=== PATIENT | male | born 1950 | race Hispanic/Latino ===

== ENCOUNTER 2022-08-15 17:47 | Observation (INO) | payer MEDICARE, OTHER, SELFPAY ==
[2022-08-15 18:33] LABS: Hemoglobin 10.6 g/dL (13.5-17.5); Mean Corpuscular HGB CONC 35.3 g/dL (32.0-36.0); Mean Corpuscular Hemoglobin 31.5 pg (27.0-33.0); Mean Platelet Volume 10.5 fl (7.4-10.4); Platelet Count 210 10x3/uL (150-450); RBC Distribution Width 12.2 % (11.5-14.5); Red Blood Cell (RBC) Count 3.37 10x6/uL (4.32-5.72); White Blood Cell (WBC) Count 7.3 10x3/uL (3.5-10.5)
[2022-08-15] MEDS ORDERED: Ondansetron PF 4 MG/2 ML Vial ONE (18:46)
[2022-08-15 19:18] LABS: Lymphocytes 8 % (21-51); Monocytes 3 % (0-10); Neutrophil 89 % (42-75)
[2022-08-15 19:20] LABS: MDiff Complete? YES; Platelet Morphology Comment Appears Adequate; RBC Morphology Normal
[2022-08-15] MEDS ORDERED: Calcium Carbonate 500 MG ChewTAB PO PRN (21:22)
[2022-08-15] MEDS ORDERED: Senokot S 8.6-50 MG TAB PO PRN (21:22)
[2022-08-15] MEDS ORDERED: Acetaminophen 325 MG TAB PO PRN (21:22)
[2022-08-15] MEDS ORDERED: Ondansetron PF 4 MG/2 ML Vial IVP PRN (21:22)
[2022-08-15] MEDS ORDERED: Guaifenesin DM 100-10/5 ML UDCUP PO PRN (21:22)
[2022-08-15] MEDS ORDERED: Melatonin 3 MG TAB PO PRN (21:25)
[2022-08-15] MEDS ORDERED: Lactated Ringer's 500 ML IV SCH (22:00)
[2022-08-15 22:16] VITALS: BMI 28.1
[2022-08-15] MEDS ORDERED: Oxymetazoline HCl 0.05% ( 15 ML ) ONE (22:36)
[2022-08-15] MEDS: Sodium Chloride 0.65% Nasal 44 ML BOT EA NARE SCH (22:40)
[2022-08-15] MEDS: Oxymetazoline HCl 0.05% ( 15 ML ) NASAL SCH (22:40)
[2022-08-15 23:05] VITALS: TEMP 98.4
[2022-08-15 23:18] LABS: SARS-CoV-2 NAA Rapid Test Not Detected (NotDetected)
[2022-08-16 01:06] VITALS: BP 121/75
[2022-08-16 03:48] LABS: #Monocytes 0.6 10x3/uL (0.0-1.1); #Neutrophils 2.8 10x3/uL (1.5-8.4); %Basophils 0.7 % (0.0-2.0); %Eosinophils 0.9 % (0.0-6.0); %Lymphocytes 23.9 % (18.0-47.0); %Monocytes 12.3 % (0.0-10.0); Hemoglobin 9.8 g/dL (13.5-17.5); Mean Corpuscular HGB CONC 35.9 g/dL (32.0-36.0); Mean Corpuscular Volume 89.2 fl (81.2-95.1); Mean Platelet Volume 10.8 fl (7.4-10.4); Platelet Count 190 10x3/uL (150-450); RBC Distribution Width 12.4 % (11.5-14.5); Red Blood Cell (RBC) Count 3.06 10x6/uL (4.32-5.72); White Blood Cell (WBC) Count 4.6 10x3/uL (3.5-10.5)
[2022-08-16 04:01] LABS: Anion Gap 13 mmol/L (10-20); BUN (Urea Nitrogen) 44 mg/dL (8.4-25.7); Calc. Creatinine Clearance 109 mL/min (70-130); Calcium 8.4 mg/dL (7.8-10.44); Carbon Dioxide 21 mmol/L (23-31); Chloride 112 mmol/L (98-107); Estimated GFR 98; Glucose 86 mg/dL (80-115); Potassium 3.7 mmol/L (3.5-5.1); Sodium 142 mmol/L (136-145)
[2022-08-16] MEDS: Sodium Chloride 0.65% Nasal 44 ML BOT EA NARE SCH (06:12)
[2022-08-16] MEDS: Oxymetazoline HCl 0.05% ( 15 ML ) NASAL SCH (10:00)
== END 2022-08-16 15:00 | disposition home or self-care (01) ==
LOC: CSHERS 17:47 → INTOOBSV 21:01 → CSHERHOLD 21:01
PROVIDERS: ADMIT Student in an Organized Health Care Education/Training Program; ATTEND Family Medicine
DX: R55 Syncope and collapse (principal); R04.0 Epistaxis; R42 Dizziness and giddiness; I12.9 Hypertensive chronic kidney disease with stage 1 through stage 4 chronic kidney disease, or unspecified chronic kidney disease; N18.30 Chronic kidney disease, stage 3 unspecified; R79.89 Other specified abnormal findings of blood chemistry; I48.0 Paroxysmal atrial fibrillation; D62 Acute posthemorrhagic anemia; C61 Malignant neoplasm of prostate; I95.9 Hypotension, unspecified; R65.10 Systemic inflammatory response syndrome (SIRS) of non-infectious origin without acute organ dysfunction; N17.9 Acute kidney failure, unspecified; E78.5 Hyperlipidemia, unspecified; I44.7 Left bundle-branch block, unspecified; M10.9 Gout, unspecified; M19.90 Unspecified osteoarthritis, unspecified site; Z20.822 Contact with and (suspected) exposure to COVID-19; Z79.899 Other long term (current) drug therapy
CPT/HCPCS: 80048; 82533; 82962; 84484; 85025 ×2; 93005; 99285; G0378; U0002; 36415; 36416; J2405; J7120

== ENCOUNTER 2022-08-25 13:45 | Inpatient (IN) | payer OTHER ==
[2022-08-25] MEDS ORDERED: EPINEPHrine 1 MG/ML AMP ONE (14:22)
[2022-08-25] MEDS ORDERED: PROPOFOL 20 ML ONE (14:27)
[2022-08-25] MEDS ORDERED: Fentanyl 100 MCG/2 ML VIAL ONE ×2 (14:27→15:33)
[2022-08-25 14:33] LABS: Hemoglobin 7.1 g/dL (13.5-17.5)
[2022-08-25 14:42] LABS: Anion Gap 14 mmol/L (10-20); BUN (Urea Nitrogen) 24 mg/dL (8.4-25.7); Calc. Creatinine Clearance 0 mL/min (70-130); Calcium 8.6 mg/dL (7.8-10.44); Carbon Dioxide 23 mmol/L (23-31); Chloride 106 mmol/L (98-107); Estimated GFR 95; Glucose 106 mg/dL (80-115); Potassium 3.8 mmol/L (3.5-5.1); Sodium 139 mmol/L (136-145)
[2022-08-25] MEDS ORDERED: PHENYLEPHRINE-NS 100 MCG/ML 10 ML SYRINGE ONE (15:08)
[2022-08-25] MEDS ORDERED: ePHEDrine Sulfate 50 MG/10 ML VIAL ONE (15:09)
[2022-08-25] MEDS ORDERED: Oxymetazoline HCl 0.05% ( 15 ML ) ONE (15:33)
[2022-08-25] MEDS ORDERED: HYDROcodone/Acetaminophen 5/325 mg Tablet ONE (16:59)
[2022-08-25] MEDS ORDERED: Ondansetron PF 4 MG/2 ML Vial IVP PRN (17:47)
[2022-08-25] MEDS ORDERED: Acetaminophen 325 MG TAB PO PRN (17:47)
[2022-08-25] MEDS ORDERED: Ondansetron ODT 4 MG TAB PO PRN (17:47)
[2022-08-25] MEDS ORDERED: Oxymetazoline HCl 0.05% ( 15 ML ) NASAL PRN (17:57)
[2022-08-25] MEDS ORDERED: Furosemide 20 MG/2 ML VIAL SLOW IVP SCH ×2 (18:30→21:00)
[2022-08-25] MEDS ORDERED: AMOXicillin 500 MG CAP PO SCH (21:00)
[2022-08-25] MEDS: AMOXicillin 250 MG CAP PO SCH (22:08)
[2022-08-25] MEDS: Sodium Chloride 0.65% Nasal 44 ML BOT EA NARE SCH (22:08)
[2022-08-25] MEDS: Acetaminophen/Codeine 30-300mg Tablet PO PRN (22:38)
[2022-08-26] MEDS: Ibuprofen 400 MG TAB PO PRN ×3 (00:35→15:21)
[2022-08-26 04:30] LABS: Anion Gap 14 mmol/L (10-20); BUN (Urea Nitrogen) 20 mg/dL (8.4-25.7); Calc. Creatinine Clearance 0 mL/min (70-130); Calcium 8.7 mg/dL (7.8-10.44); Carbon Dioxide 24 mmol/L (23-31); Chloride 106 mmol/L (98-107); Estimated GFR 93; Glucose 125 mg/dL (80-115); Sodium 140 mmol/L (136-145)
[2022-08-26 04:38] LABS: #Monocytes 0.4 10x3/uL (0.0-1.1); #Neutrophils 3.7 10x3/uL (1.5-8.4); %Lymphocytes 13.9 % (18.0-47.0); %Monocytes 7.6 % (0.0-10.0); %Neutrophils 77.9 % (40.0-75.0); Hemoglobin 6.5 g/dL (13.5-17.5); Mean Corpuscular HGB CONC 33.9 g/dL (32.0-36.0); Mean Corpuscular Hemoglobin 31.4 pg (27.0-33.0); Mean Corpuscular Volume 92.8 fl (81.2-95.1); Mean Platelet Volume 9.6 fl (7.4-10.4); Platelet Count 268 10x3/uL (150-450); RBC Distribution Width 14.8 % (11.5-14.5); Red Blood Cell (RBC) Count 2.07 10x6/uL (4.32-5.72); White Blood Cell (WBC) Count 4.7 10x3/uL (3.5-10.5)
[2022-08-26] MEDS: AMOXicillin 250 MG CAP PO SCH ×3 (09:13→20:52)
[2022-08-26] MEDS: Sodium Chloride 0.65% Nasal 44 ML BOT EA NARE SCH ×3 (09:13→20:51)
[2022-08-26 09:56] LABS: Hemoglobin 6.6 g/dL (13.5-17.5)
[2022-08-26 10:10] LABS: Iron 54 ug/dL (65-175); Iron Binding Capacity, Total 245 mcg/dL (261-462); PTT 24.7 sec (22.0-33.0); Prothrombin Time 10.7 sec (9.5-12.1)
[2022-08-26] MEDS: Acetaminophen/Codeine 30-300mg Tablet PO PRN ×3 (12:37→22:42)
[2022-08-26] MEDS ORDERED: Polyethylene Glycol 3350 17 GM Packet PO SCH (12:45)
[2022-08-26] MEDS: Senokot S 8.6-50 MG TAB PO SCH (20:52)
[2022-08-27] MEDS ORDERED: Melatonin 3 MG TAB PO SCH (02:00)
[2022-08-27] MEDS: Acetaminophen/Codeine 30-300mg Tablet PO PRN ×2 (03:12→07:11)
[2022-08-27 05:17] LABS: #Eosinphils 0.1 10x3/uL (0.0-0.5); #Monocytes 0.5 10x3/uL (0.0-1.1); #Neutrophils 3.7 10x3/uL (1.5-8.4); %Basophils 0.4 % (0.0-2.0); %Eosinophils 1.3 % (0.0-6.0); %Lymphocytes 17.3 % (18.0-47.0); %Monocytes 9.4 % (0.0-10.0); %Neutrophils 71.2 % (40.0-75.0); Hemoglobin 7.2 g/dL (13.5-17.5); Mean Corpuscular HGB CONC 34.3 g/dL (32.0-36.0); Mean Corpuscular Hemoglobin 32.4 pg (27.0-33.0); Mean Corpuscular Volume 94.6 fl (81.2-95.1); Mean Platelet Volume 10.1 fl (7.4-10.4); Platelet Count 253 10x3/uL (150-450); RBC Distribution Width 15.2 % (11.5-14.5); Red Blood Cell (RBC) Count 2.22 10x6/uL (4.32-5.72); White Blood Cell (WBC) Count 5.2 10x3/uL (3.5-10.5)
[2022-08-27 05:49] LABS: Anion Gap 13 mmol/L (10-20); BUN (Urea Nitrogen) 24 mg/dL (8.4-25.7); Calc. Creatinine Clearance 0 mL/min (70-130); Calcium 8.7 mg/dL (7.8-10.44); Carbon Dioxide 23 mmol/L (23-31); Chloride 108 mmol/L (98-107); Estimated GFR 89; Glucose 98 mg/dL (80-115); Magnesium 2.3 mg/dL (1.6-2.6); Sodium 140 mmol/L (136-145)
[2022-08-27] MEDS: Ibuprofen 400 MG TAB PO PRN ×3 (07:39→15:15)
[2022-08-27] MEDS: Ferrous Sulfate 325 MG TAB PO SCH (08:13)
[2022-08-27] MEDS: AMOXicillin 250 MG CAP PO SCH ×3 (08:17→21:16)
[2022-08-27] MEDS: Senokot S 8.6-50 MG TAB PO SCH ×2 (08:18→21:16)
[2022-08-27] MEDS: Polyethylene Glycol 3350 17 GM Packet PO SCH (08:18)
[2022-08-27] MEDS: Sodium Chloride 0.65% Nasal 44 ML BOT EA NARE SCH ×2 (08:19→15:23)
[2022-08-27] MEDS ORDERED: traZODone HCl 50 MG TAB PO PRN (11:10)
[2022-08-27] MEDS ORDERED: Bisacodyl 10 MG SUPP PR SCH (11:15)
[2022-08-27] MEDS ORDERED: Milk Of Magnesia 30 ML UDCUP PO SCH (11:15)
[2022-08-27] MEDS: HYDROcodone/Acetaminophen 10/325 mg Tablet PO PRN ×3 (12:24→23:09)
[2022-08-27] MEDS: Bisacodyl 5 MG TAB PO SCH (21:17)
[2022-08-27] MEDS: Melatonin 3 MG TAB PO SCH (23:08)
[2022-08-27] MEDS: traZODone HCl 50 MG TAB PO SCH (23:09)
[2022-08-28] MEDS: Sodium Chloride 0.65% Nasal 44 ML BOT EA NARE SCH ×4 (00:22→22:05)
[2022-08-28] MEDS: Ibuprofen 400 MG TAB PO PRN ×3 (01:12→17:24)
[2022-08-28] MEDS: HYDROcodone/Acetaminophen 10/325 mg Tablet PO PRN ×5 (03:15→22:12)
[2022-08-28 05:32] LABS: #Eosinphils 0.2 10x3/uL (0.0-0.5); #Monocytes 0.4 10x3/uL (0.0-1.1); #Neutrophils 2.8 10x3/uL (1.5-8.4); %Basophils 0.7 % (0.0-2.0); %Eosinophils 5.7 % (0.0-6.0); %Lymphocytes 16.4 % (18.0-47.0); %Monocytes 10.2 % (0.0-10.0); %Neutrophils 66.8 % (40.0-75.0); Hemoglobin 7.3 g/dL (13.5-17.5); Mean Corpuscular HGB CONC 34.3 g/dL (32.0-36.0); Mean Corpuscular Hemoglobin 32.4 pg (27.0-33.0); Mean Corpuscular Volume 94.7 fl (81.2-95.1); Mean Platelet Volume 9.9 fl (7.4-10.4); Platelet Count 260 10x3/uL (150-450); RBC Distribution Width 15.3 % (11.5-14.5); Red Blood Cell (RBC) Count 2.25 10x6/uL (4.32-5.72); White Blood Cell (WBC) Count 4.2 10x3/uL (3.5-10.5)
[2022-08-28 05:47] LABS: Anion Gap 12 mmol/L (10-20); BUN (Urea Nitrogen) 24 mg/dL (8.4-25.7); Calc. Creatinine Clearance 0 mL/min (70-130); Calcium 8.6 mg/dL (7.8-10.44); Carbon Dioxide 26 mmol/L (23-31); Chloride 107 mmol/L (98-107); Estimated GFR 94; Glucose 95 mg/dL (80-115); Magnesium 2.3 mg/dL (1.6-2.6); Potassium 4.1 mmol/L (3.5-5.1); Sodium 141 mmol/L (136-145)
[2022-08-28] MEDS: Polyethylene Glycol 3350 17 GM Packet PO SCH (08:43)
[2022-08-28] MEDS: AMOXicillin 250 MG CAP PO SCH ×3 (08:43→22:07)
[2022-08-28] MEDS: Ferrous Sulfate 325 MG TAB PO SCH (08:44)
[2022-08-28] MEDS: Senokot S 8.6-50 MG TAB PO SCH ×2 (08:44→22:40)
[2022-08-28] MEDS: Bisacodyl 5 MG TAB PO SCH ×2 (08:44→22:39)
[2022-08-28] MEDS ORDERED: Fleet Enema 133 ML BOT PR SCH ×2 (09:30→14:45)
[2022-08-28 11:52] VITALS: BMI 29.7
[2022-08-28] MEDS ORDERED: Bisacodyl 10 MG SUPP PR SCH (21:45)
[2022-08-28] MEDS: traZODone HCl 50 MG TAB PO SCH (22:09)
[2022-08-28] MEDS: Melatonin 3 MG TAB PO SCH (22:09)
[2022-08-29] MEDS: HYDROcodone/Acetaminophen 10/325 mg Tablet PO PRN ×3 (02:58→20:23)
[2022-08-29] MEDS: Ferrous Sulfate 325 MG TAB PO SCH (09:04)
[2022-08-29] MEDS: Polyethylene Glycol 3350 17 GM Packet PO SCH (09:05)
[2022-08-29] MEDS: Sodium Chloride 0.65% Nasal 44 ML BOT EA NARE SCH ×3 (09:05→20:32)
[2022-08-29] MEDS: AMOXicillin 250 MG CAP PO SCH ×3 (09:05→20:23)
[2022-08-29] MEDS: Bisacodyl 5 MG TAB PO SCH ×2 (09:05→20:23)
[2022-08-29] MEDS: Senokot S 8.6-50 MG TAB PO SCH ×2 (09:05→20:23)
[2022-08-29] MEDS ORDERED: Bisacodyl 10 MG SUPP PR PRN (10:46)
[2022-08-29] MEDS ORDERED: PROPOFOL 20 ML ONE (13:08)
[2022-08-29] MEDS ORDERED: Ondansetron PF 4 MG/2 ML Vial ONE (13:08)
[2022-08-29] MEDS ORDERED: Dexamethasone 20 MG/5 ML VIAL ONE (13:08)
[2022-08-29] MEDS: Ibuprofen 400 MG TAB PO PRN (16:38)
[2022-08-29] MEDS: traZODone HCl 50 MG TAB PO SCH (20:23)
[2022-08-29] MEDS: Melatonin 3 MG TAB PO SCH (20:23)
[2022-08-30] MEDS: HYDROcodone/Acetaminophen 10/325 mg Tablet PO PRN ×3 (00:30→09:12)
[2022-08-30 06:09] LABS: Mean Corpuscular HGB CONC 34.2 g/dL (32.0-36.0); Mean Corpuscular Hemoglobin 31.6 pg (27.0-33.0); Mean Corpuscular Volume 92.5 fl (81.2-95.1); Platelet Count 306 10x3/uL (150-450); RBC Distribution Width 15.2 % (11.5-14.5); Red Blood Cell (RBC) Count 2.53 10x6/uL (4.32-5.72); White Blood Cell (WBC) Count 5.8 10x3/uL (3.5-10.5)
[2022-08-30 06:20] LABS: Anion Gap 13 mmol/L (10-20); BUN (Urea Nitrogen) 24 mg/dL (8.4-25.7); Calc. Creatinine Clearance 81 mL/min (70-130); Calcium 8.8 mg/dL (7.8-10.44); Carbon Dioxide 25 mmol/L (23-31); Chloride 104 mmol/L (98-107); Estimated GFR 78; Glucose 132 mg/dL (80-115); Magnesium 2.4 mg/dL (1.6-2.6); Potassium 4.2 mmol/L (3.5-5.1); Sodium 138 mmol/L (136-145)
[2022-08-30] MEDS: Ibuprofen 400 MG TAB PO PRN (07:41)
[2022-08-30 08:38] VITALS: BP 114/57; TEMP 97.8
[2022-08-30] MEDS: Bisacodyl 5 MG TAB PO SCH (09:11)
[2022-08-30] MEDS: Polyethylene Glycol 3350 17 GM Packet PO SCH (09:11)
[2022-08-30] MEDS: Senokot S 8.6-50 MG TAB PO SCH (09:12)
[2022-08-30] MEDS: AMOXicillin 250 MG CAP PO SCH (09:12)
[2022-08-30] MEDS: Ferrous Sulfate 325 MG TAB PO SCH (09:12)
== END 2022-08-30 16:12 | disposition home or self-care (01) | DRG 151 ==
LOC: CSHSDC/OP 13:45 → CSHTELE 19:47 → OBSVTOIN 08-28 12:53
PROVIDERS: ADMIT Otolaryngology Otolaryngic Allergy; ATTEND Otolaryngology Otolaryngic Allergy
PROC: 2Y41X5Z Packing of Nasal Region using Packing Material (ICD-10-PCS; 2022-08-25)
PROC: 093K8ZZ Control Bleeding in Nasal Mucosa and Soft Tissue, Via Natural or Artificial Opening Endoscopic (ICD-10-PCS; 2022-08-25)
PROC: 30233N1 Transfusion of Nonautologous Red Blood Cells into Peripheral Vein, Percutaneous Approach (ICD-10-PCS; 2022-08-26)
PROC: 093K8ZZ Control Bleeding in Nasal Mucosa and Soft Tissue, Via Natural or Artificial Opening Endoscopic (ICD-10-PCS; principal; 2022-08-29)
DX: R04.0 Epistaxis (principal); D62 Acute posthemorrhagic anemia; G47.33 Obstructive sleep apnea (adult) (pediatric); C61 Malignant neoplasm of prostate; I10 Essential (primary) hypertension; K59.00 Constipation, unspecified; Z92.3 Personal history of irradiation
CPT/HCPCS: 36415; 36430; 71045; 74018; 80048; 82728; 83540; 83550; 83735; 83880; 85014; 85018; 85025; 85027; 85046; 85610; 85730; 86850; 86900; 86901; 88305; 93005; 93010; 94760; 96374; C1776; G0378; J0171; J1100; J1940; J2405; J2704; J3010; P9016; Q0162